=== PATIENT | male | born 1965 | race Two or more races ===

== ENCOUNTER 2024-08-25 11:00 | Day surgery (SDC) | payer MEDICARE, MEDICAID, SELFPAY ==
[2024-08-25] VITALS (8 sets, daily range): BP systolic 101–162; BP diastolic 61–90; PULSE 67–80; RESP 13–21; TEMP 36.5–37.1; O2SAT 94–98
[2024-08-25] MEDS: DiphenhydrAMINE INJ 50 MG/ML VIAL 25 MG IV (12:52)
[2024-08-25] MEDS: ONDANSETRON INJ 2 MG/ML INJ 2 ML 4 MG IV (12:55)
[2024-08-25] MEDS: fentaNYL CIT INJ 50 mCg/ML AMP 2ML (ASD USE ONLY) IV (12:58)
[2024-08-25] MEDS: MIDAZOLAM INJ 1 MG/ML VIAL 2 ML (ASD USE ONLY) 2 MG IV (12:58)
--- NOTE | 2024-08-25 14:15 | SUR.PHASEII ---
1314: Pt received for recovery. Report from Bobbi GLASGOW. Pt sleepy. Is arousable with eye opening then drifts back to sleep. Resp even, unlabored. VS stable. No c/o pain, discomfort. 1340: Pt more awake, alert. Is able to understand instructions and follows them. Pt assisted to restroom. Ambulation steady. Pt wished son translate for him. Pt and son stated understanding of discharge instructions and which home medications to hold today. Pt also instructed to pick up man his prescription at [facility] on [address]. Pt discharged from [facility] in stable condition.
== END 2024-08-25 14:00 | disposition home or self-care (01) ==
PROVIDERS: PCP Family Medicine; Referring Provider Specialist; Visit Provider Specialist
PROC: 0DBE8ZX Excision of Large Intestine, Via Natural or Artificial Opening Endoscopic, Diagnostic (ICD-10-PCS; CPT 45380; principal; 2024-08-25 12:15)
DX: K64.9 Unspecified hemorrhoids (principal); K51.90 Ulcerative colitis, unspecified, without complications; K63.89 Other specified diseases of intestine; K62.1 Rectal polyp
CPT/HCPCS: 45380; A4649; J1200; J2250; J2405; J3010